=== PATIENT | female | born 1945 | race Two or more races ===

== ENCOUNTER 2018-02-14 10:48 | Outpatient (CLI) | payer OTHER ==
[~2018-02-14 10:48] MED LIST: CARAFATE SU1 G/10 ML PO; CIPRO500 MG PO; FLAGYL500MG PO; INTESTINEX1 CA1 PO
== END 2018-02-14 17:09 | disposition home or self-care (01) ==
LOC: RAD 501 10:48
DX: M16.12 Unilateral primary osteoarthritis, left hip (principal); M54.5 Low back pain; M51.26 Other intervertebral disc displacement, lumbar region

== ENCOUNTER 2018-05-27 10:15 | Outpatient (CLI) | payer OTHER | END 2018-05-27 10:24 | disposition home or self-care (01) | LOC: TOM 10:15 | DX: J32.8 Other chronic sinusitis (principal) ==

== ENCOUNTER 2018-06-20 14:11 | Outpatient (CLI) | payer OTHER | END 2018-06-20 14:12 | disposition home or self-care (01) | LOC: SONOGRAMA 14:11 | DX: R10.84 Generalized abdominal pain (principal) ==

== ENCOUNTER 2019-08-05 08:35 | Emergency (ER) | payer OTHER ==
[~2019-08-05] VITALS: Ht 160 cm; Wt 61.2 kg
== END 2019-08-05 11:46 | disposition home or self-care (01) ==
LOC: ER 08:35
DX: S42.222A 2-part displaced fracture of surgical neck of left humerus, initial encounter for closed fracture (principal); W18.39XA Other fall on same level, initial encounter; Y93.89 Activity, other specified; Y92.63 Factory as the place of occurrence of the external cause; Y99.8 Other external cause status

== ENCOUNTER 2019-08-29 11:38 | Outpatient (CLI) | payer OTHER | END 2019-08-29 11:58 | disposition home or self-care (01) | LOC: RAD 11:38 → TOM 11:38 → RAD 11:58 → TOM 08-30 08:15 | PROVIDERS: ATTEND Psychiatry & Neurology Clinical Neurophysiology | DX: S06.5X0A Traumatic subdural hemorrhage without loss of consciousness, initial encounter (principal); M47.12 Other spondylosis with myelopathy, cervical region; M47.20 Other spondylosis with radiculopathy, site unspecified ==

== ENCOUNTER 2020-02-09 08:45 | Outpatient (CLI) | payer OTHER | END 2020-02-09 08:55 | disposition home or self-care (01) | LOC: RAD 08:45 | PROVIDERS: ATTEND Physical Medicine & Rehabilitation | DX: M77.32 Calcaneal spur, left foot (principal) ==

== ENCOUNTER 2020-05-08 09:08 | Outpatient (CLI) | payer OTHER | END 2020-05-08 09:22 | disposition home or self-care (01) | LOC: MAMO-SONO 09:08 | PROVIDERS: ATTEND Obstetrics & Gynecology | DX: N60.11 Diffuse cystic mastopathy of right breast (principal) ==

== ENCOUNTER 2020-07-09 09:31 | Outpatient (CLI) | payer OTHER | END 2020-07-09 09:38 | disposition home or self-care (01) | LOC: RAD 09:31 | PROVIDERS: ATTEND Internal Medicine Gastroenterology | DX: R10.84 Generalized abdominal pain (principal) ==

== ENCOUNTER 2020-07-23 09:17 | Outpatient (CLI) | payer OTHER | END 2020-07-23 09:21 | disposition home or self-care (01) | LOC: RAD 09:17 | PROVIDERS: ATTEND Physical Medicine & Rehabilitation | DX: M54.2 Cervicalgia (principal); M25.512 Pain in left shoulder; M84.3 Stress fracture ==

== ENCOUNTER 2020-12-02 11:20 | Outpatient (CLI) | payer OTHER | END 2020-12-02 11:30 | disposition home or self-care (01) | LOC: PPH VACUNA 11:20 | PROVIDERS: ATTEND Emergency Medicine Pediatric Emergency Medicine | DX: Z23 Encounter for immunization (principal) ==

== ENCOUNTER 2021-01-13 15:03 | Outpatient (CLI) | payer OTHER | END 2021-01-13 15:15 | disposition home or self-care (01) | LOC: TOM 15:03 | PROVIDERS: ATTEND Internal Medicine Gastroenterology | DX: N20.0 Calculus of kidney (principal); K40.90 Unilateral inguinal hernia, without obstruction or gangrene, not specified as recurrent; K57.90 Diverticulosis of intestine, part unspecified, without perforation or abscess without bleeding ==

== ENCOUNTER 2021-04-19 09:26 | Outpatient (CLI) | payer OTHER | END 2021-04-19 09:31 | disposition home or self-care (01) | LOC: RAD 09:26 | PROVIDERS: ATTEND Physical Medicine & Rehabilitation | DX: M54.2 Cervicalgia (principal) ==

== ENCOUNTER 2021-06-11 08:00 | Outpatient (CLI) | payer OTHER | END 2021-06-11 08:30 | disposition home or self-care (01) | LOC: SONO 607 08:00 | PROVIDERS: ATTEND Emergency Medicine Pediatric Emergency Medicine | DX: Z23 Encounter for immunization (principal) ==

== ENCOUNTER 2022-03-27 08:11 | Outpatient (CLI) | payer OTHER | END 2022-03-27 08:24 | disposition home or self-care (01) | LOC: TOM 08:11 | PROVIDERS: ATTEND Otolaryngology | DX: G58.8 Other specified mononeuropathies (principal); R20.2 Paresthesia of skin ==

== ENCOUNTER 2022-08-07 | Outpatient (CLI) | payer OTHER | END 2022-08-07 00:15 | disposition home or self-care (01) | LOC: PPH VACUNA | PROVIDERS: ATTEND Emergency Medicine Pediatric Emergency Medicine | DX: Z23 Encounter for immunization (principal) ==

== ENCOUNTER → 2022-10-12 | Outpatient (CLI) | payer OTHER | END | disposition home or self-care (01) | LOC: MAMO-SONO 07:19 | PROVIDERS: ATTEND Internal Medicine | DX: R10.9 Unspecified abdominal pain (principal); Z12.31 Encounter for screening mammogram for malignant neoplasm of breast; N60.12 Diffuse cystic mastopathy of left breast; N60.11 Diffuse cystic mastopathy of right breast ==

== ENCOUNTER 2023-10-12 08:50 | Outpatient (CLI) | payer OTHER | END 2023-10-12 14:51 | disposition home or self-care (01) | LOC: RAD 08:50 | PROVIDERS: ATTEND Internal Medicine Gastroenterology | DX: M54.50 Low back pain, unspecified (principal); R07.9 Chest pain, unspecified ==

== ENCOUNTER 2024-03-16 08:17 | Outpatient (CLI) | payer OTHER | END 2024-03-16 08:30 | disposition home or self-care (01) | LOC: RAD 08:17 | DX: Z01.89 Encounter for other specified special examinations (principal) ==

== ENCOUNTER 2024-03-16 08:20 | Outpatient (CLI) | payer OTHER | END 2024-03-16 08:21 | disposition home or self-care (01) | LOC: EKG 08:20 | PROVIDERS: ATTEND Otolaryngology Otolaryngology/Facial Plastic Surgery | DX: R94.31 Abnormal electrocardiogram [ECG] [EKG] (principal) ==

== ENCOUNTER 2024-05-25 08:21 | Outpatient (CLI) | payer OTHER | END 2024-05-25 08:40 | disposition home or self-care (01) | LOC: SONOGRAMA 08:21 | PROVIDERS: ATTEND Internal Medicine Endocrinology, Diabetes & Metabolism | DX: N21.8 Other lower urinary tract calculus (principal); R10.9 Unspecified abdominal pain; R30.1 Vesical tenesmus; R10.12 Left upper quadrant pain ==